=== PATIENT | female | born 2000 | race American Indian/Alaskan Native ===

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

== ENCOUNTER 2020-02-06 10:56 | Emergency (ER) | payer BC, OTHER ==
[2020-02-06] MEDS ORDERED: HYDROmorphone 1 MG/ML Syringe IVPUSH ONE (11:12)
[2020-02-06] MEDS ORDERED: Sodium Chloride 0.9% 1,000 ML IV ONE (11:12)
[2020-02-06] MEDS ORDERED: Ondansetron 4 MG/2 ML SDV IVPUSH ONE (11:13)
--- NOTE | 2020-02-06 11:14 | EDM.PDOC ---
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 Pt rates the pain 9/10. The pain is radiating to to left lower abdomen and groin. Denies diarrhea, dysuria, or ch thee in voiding pattern. Pt states the Sx's are similar to prior kidney infection. Onset: Today, Sudden Duration: Constant Location: Reports: Abdomen, Other (Left flank) Quality: Reports: Ache Severity: Severe Improves with: Reports: None Worsens with: Reports: None Associated Symptoms: Reports: No Other Symptoms - Related Data Allergies Allergy/AdvReac Type Severity Reaction Status Date / Time No Known Allergies Allergy Verified 03/27/19 22:15 Home Meds: Home Meds Eszopiclone [Lunesta] 3 mg PO BEDTIME PRN 03/28/19 [History] Levothyroxine Sodium [Synthroid] 100 mcg PO DAILY 03/28/19 [History] Ciprofloxacin [Cipro XR] 500 mg PO BID #14 tab.er 03/31/19 [Rx] Levothyroxine [Synthroid] 100 mcg PO DAILY tablet 03/31/19 [Rx] Past Medical History HEENT History: Reports: None Cardiovascular History: Reports: None Respiratory History: Reports: None Gastrointestinal History: Reports: None Genitourinary History: Reports: Pyelonephritis Other Genitourinary History: currently 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 Neurological History: Reports: None Psychiatric History: Reports: Anxiety, Depression, PTSD Endocrine/Metabolic History: Reports: Hypothyroidism, Obesity/BMI 30+ Hematologic History: Reports: None Immunologic History: Reports: None Oncologic (Cancer) History: Reports: None Other Dermatologic History: gets bad heat rash - Infectious Disease History Infectious Disease History: Reports: None - Past Surgical History Head Surgeries/Procedures: Reports: None Female Surgical History: Reports: None Musculoskeletal Surgical History: Reports: Other (See Below) Other Musculoskeletal Surgeries/Procedures:: ACL right (05-04-2018), right arm break, 2nd grade Social & Family History - Family History Family Medical History: Noncontributory - Caffeine Use Caffeine Use: Reports: Soda - Living Situation & Occupation Living situation: Reports: with Family ED ROS GENERAL - Review of Systems Review Of Systems: Comprehensive ROS is negative, except as noted in HPI. ED EXAM, GI/ABD - Physical Exam Exam: See Below Exam Limited By: No Limitations General Appearance: Alert, WD/WN, No Apparent Distress, Obese Eyes: Bilateral: Normal Appearance Throat/Mouth: Normal Voice, No Airway Compromise Head: Atraumatic, Normocephalic Neck: Normal Inspection Respiratory/Chest: No Respiratory Distress, Lungs Clear, Normal Breath Sounds, No Accessory Muscle Use, Chest Non-Tender Cardiovascular: Normal Peripheral Pulses, Regular Rate, Rhythm, No Edema, No Gallop, No JVD, No Murmur, No Rub GI/Abdominal Exam: Normal Bowel Sounds, Soft, Non-Tender (no pain to palpation over area of pain at LLQ), No Organomegaly, No Distention, No Abnormal Bruit. No: Guarding, Rigid, Rebound (Female) Exam: Deferred Rectal (Female) Exam: Deferred Back Exam: Full Range of Motion, CVA Tenderness (L). No: CVA Tenderness (R), Vertebral Tenderness Extremities: Normal Inspection Neurological: Alert, Oriented, Normal Cognition, Normal Gait, No Motor/Sensory Deficits Psychiatric: Normal Affect, Normal Mood Skin Exam: Warm, Intact, Normal Color, No Rash, Diaphoretic Course - Vital Signs Last Recorded V/S: Last Vital Signs Temp 98.1 F 02/06/20 11:06 Pulse 100 02/06/20 11:06 Resp 16 02/06/20 11:06 BP 128/87 02/06/20 11:06 Pulse Ox 99 02/06/20 11:06 - Orders/Labs/Meds Orders: Active Orders 24 hr Category Date Time Status Abdomen Pelvis wo Cont [CT] Urgent Exams 02/06/20 11:34 Taken Labs: Laboratory Tests 02/06/20 02/06/20 02/06/20 Range/Units 11:00 11:00 11:18 WBC 9.8 (5.0-10.0) 10^3/uL RBC 5.61 H (4.2-5.4) 10^6/uL Hgb 15.4 D (12.0-16.0) g/dL Hct 46.2 (37.0-47.0) % MCV 82.4 (80-100) fL MCH 27.5 (27.0-34.0) pg MCHC 33.3 (33.0-35.0) g/dL Plt Count 520 H D (150-450) 10^3/uL Neut % (Auto) 56.5 (42.2-75.2) % Lymph % (Auto) 34.8 (20.5-50.1) % [place] % (Auto) 6.6 (2-8) % Eos % (Auto) 1.7 (1.0-3.0) % Baso % (Auto) 0.4 (0.0-1.0) % Sodium (136-145) mmol/L Potassium (3.5-5.1) mmol/L Chloride (98-107) mmol/L Carbon Dioxide (21-32) mmol/L Anion Gap (7-13) mEq/L BUN (7-18) mg/dL Creatinine (0.55-1.02) mg/dL Est Cr Clr Drug Dosing mL/min Estimated GFR (MDRD) BUN/Creatinine Ratio (No establ ref range) Glucose (74-99) mg/dL Lactic Acid (0.4-2.0) mmol/L Calcium (8.5-10.1) mg/dL Total Bilirubin (0.2-1.0) mg/dL AST (15-37) U/L ALT (14-59) U/L Alkaline Phosphatase (46-116) U/L Total Protein (6.4-8.2) g/dL Albumin (3.4-5.0) g/dL Globulin Albumin/Globulin Ratio Amylase (25-115) U/L Lipase (73-393) U/L Urine Color Yellow (YELLOW) Urine Appearance Slightly cloudy (CLEAR) Urine pH 5.5 (5.0-9.0) Ur Specific [place] >= 1.030 (1.005-1.030) Urine Protein Trace H (NEGATIVE) Urine Glucose (UA) Negative (NEGATIVE) Urine Ketones Negative (NEGATIVE) Urine Occult Blood Small H (NEGATIVE) Urine Nitrite Negative (NEGATIVE) Urine Bilirubin Negative (NEGATIVE) Urine Urobilinogen 0.2 (0.2-1.0) mg/dL Ur Leukocyte Esterase Negative (NEGATIVE) Urine RBC 5-10 H /HPF Urine WBC 5-10 H (0-5/HPF) /HPF Ur Epithelial Cells Moderate H (NOT SEEN) /HPF Urine Bacteria Moderate H (0-FEW/HPF) /HPF Urine HCG, Qual Negative 02/06/20 02/06/20 Range/Units 11:18 11:18 WBC (5.0-10.0) 10^3/uL RBC (4.2-5.4) 10^6/uL Hgb (12.0-16.0) g/dL Hct (37.0-47.0) % MCV (80-100) fL MCH (27.0-34.0) pg MCHC (33.0-35.0) g/dL Plt Count (150-450) 10^3/uL Neut % (Auto) (42.2-75.2) % Lymph % (Auto) (20.5-50.1) % [place] % (Auto) (2-8) % Eos % (Auto) (1.0-3.0) % Baso % (Auto) (0.0-1.0) % Sodium 137 (136-145) mmol/L Potassium 3.6 (3.5-5.1) mmol/L Chloride 100 (98-107) mmol/L Carbon Dioxide 24 (21-32) mmol/L Anion Gap 16.6 H (7-13) mEq/L BUN 12 (7-18) mg/dL Creatinine 1.03 H (0.55-1.02) mg/dL Est Cr Clr Drug Dosing 82.24 mL/min Estimated GFR (MDRD) > 60 BUN/Creatinine Ratio 11.7 (No establ ref range) Glucose 116 H (74-99) mg/dL Lactic Acid 2.1 H* (0.4-2.0) mmol/L Calcium 9.1 (8.5-10.1) mg/dL Total Bilirubin 0.4 (0.2-1.0) mg/dL AST 22 (15-37) U/L ALT 39 (14-59) U/L Alkaline Phosphatase 128 H (46-116) U/L Total Protein 8.9 H (6.4-8.2) g/dL Albumin 4.6 (3.4-5.0) g/dL Globulin 4.3 Albumin/Globulin Ratio 1.1 Amylase 33 (25-115) U/L Lipase 106 (73-393) U/L Urine Color (YELLOW) Urine Appearance (CLEAR) Urine pH (5.0-9.0) Ur Specific [place] (1.005-1.030) Urine Protein (NEGATIVE) Urine Glucose (UA) (NEGATIVE) Urine Ketones (NEGATIVE) Urine Occult Blood (NEGATIVE) Urine Nitrite (NEGATIVE) Urine Bilirubin (NEGATIVE) Urine Urobilinogen (0.2-1.0) mg/dL Ur Leukocyte Esterase (NEGATIVE) Urine RBC /HPF Urine WBC (0-5/HPF) /HPF Ur Epithelial Cells (NOT SEEN) /HPF Urine Bacteria (0-FEW/HPF) /HPF Urine HCG, Qual Meds: Medications Discontinued Medications Generic Name Dose Route Start Last Admin Trade Name Freq PRN Reason Stop Dose Admin Hydromorphone HCl 1 mg 02/06/20 11:12 02/06/20 11:18 Dilaudid IVPUSH 02/06/20 11:13 1 mg ONETIME ONE Administration Sodium Chloride 1,000 mls @ 999 mls/hr 02/06/20 11:12 02/06/20 11:18 Normal Saline IV 02/06/20 12:12 999 mls/hr .BOLUS ONE Administration Ketorolac Tromethamine 30 mg 02/06/20 12:00 02/06/20 12:18 Toradol IVPUSH 02/06/20 12:01 30 mg ONETIME ONE Administration Ondansetron HCl 4 mg 02/06/20 11:13 02/06/20 11:18 Zofran IVPUSH 02/06/20 11:14 4 mg ONETIME ONE Administration Tamsulosin HCl 0.4 mg 02/06/20 12:00 02/06/20 12:18 Flomax PO 02/06/20 12:01 0.4 mg ONETIME ONE Administration - Radiology Interpretation Free Text/Narrative:: CT Abdomen/Pelvis: Left kidney stone, see Rad. report. Departure - Departure Time of Disposition: 12:36 Disposition: Home, Self-Care 01 Condition: Good Clinical Impression: Kidney stone on left side - Discharge Information *PRESCRIPTION DRUG MONITORING PROGRAM REVIEWED*: No *COPY OF PRESCRIPTION DRUG MONITORING REPORT IN PATIENT TOR: No Instructions: Kidney Stones, [id number], Renal Colic, [id number] Forms: ED Department Discharge Additional Instructions: Rx: Hydrocodone APAP 5mg/325mg Rx: Zofran 4mg Drink plenty of water. Follow up in clinic if not improved in 3 to 5 days. Return to ER if you develop a fever before you pass the kidney stone. Sepsis Event Note (ED) - Evaluation Sepsis Screening Result: No Definite Risk - Focused Exam Vital Signs: Vital Signs Temp Pulse Resp BP Pulse Ox 02/06/20 11:06 98.1 F 100 16 128/87 99 - My Orders Last 24 Hours: My Active Orders 02/06/20 11:34 Abdomen Pelvis wo Cont [CT] Urgent - Assessment/Plan Last 24 Hours: My Active Orders 02/06/20 11:34 Abdomen Pelvis wo Cont [CT] Urgent
[2020-02-06 11:49] LABS: ANION GAP 16.6 mEq/L (7-13); CHLORIDE,CL 100 mmol/L (98-107); SODIUM,NA 137 mmol/L (136-145)
[2020-02-06] MEDS ORDERED: Tamsulosin 0.4 MG Cap.ER PO ONE (12:00)
[2020-02-06] MEDS ORDERED: Ketorolac 30 MG/ML SDV IVPUSH ONE (12:00)
--- NOTE | 2020-02-06 13:27 | CT ---
PROCEDURE INFORMATION: Exam: CT Abdomen And Pelvis Without Contrast Exam date and time: 02/06/2020 11:48 AM Age: 19 years old Clinical indication: Other: Left flank pain radiating to llq abd. , Hematuria TECHNIQUE: Imaging protocol: Computed tomography of the abdomen and pelvis without contrast. Radiation optimization: All CT scans at this facility use at least one of these dose optimization techniques: automated exposure control; mA and/or kV adjustment per patient size (includes targeted exams where dose is matched to clinical indication); or iterative reconstruction. COMPARISON: CT Abdomen Pelvis w Cont 03/27/2019 3:47 PM FINDINGS: Liver: Normal. Gallbladder and bile ducts: Normal. Pancreas: Normal. Spleen: Normal. Adrenals: Normal. Kidneys and ureters: 1 mm calculus in the distal left ureter approaching the left ureterovesicular junction. The left ureter is mildly enlarged with mild wall thickening and distal left periureteral fatty stranding. Left renal pelvis is very slightly enlarged compared to right. Stomach and bowel: Normal. Appendix: Normal. Intraperitoneal space: No ascites or pneumoperitoneum. Vasculature: Normal. Lymph nodes: No inguinal, mesenteric or retroperitoneal adenopathy. Bladder: Normal. Reproductive: Normal uterus and ovaries. Bones/joints: Normal. Soft tissues: Normal. IMPRESSION: Minimally obstructing 1 mm distal left ureteral calculus.
== END 2020-02-06 13:00 | disposition home or self-care (01) ==
LOC: DL.ED 10:56
DX: N20.0 Calculus of kidney (principal); E03.9 Hypothyroidism, unspecified; E66.9 Obesity, unspecified; Z68.36 Body mass index [BMI] 36.0-36.9, adult; Z79.899 Other long term (current) drug therapy
CPT/HCPCS: 36415; 74176; 80053; 81001; 81025; 82150; 83605; 83690; 85025; 96361; 96374; 96375; 99284; A9270; J1170; J1885; J2405; J7030; 99283

== ENCOUNTER 2021-03-02 13:09 | Emergency (ER) | payer BC, OTHER ==
[2021-03-02] MEDS ORDERED: predniSONE 20 MG Tab PO ONE (15:45)
[2021-03-02] MEDS ORDERED: Amoxicillin/Clavulanate K 875-125 MG Tab PO ONE (15:47)
[2021-03-02] MEDS ORDERED: diphenhydrAMINE 25 MG Tab PO ONE (15:47)
--- NOTE | 2021-03-02 16:03 | EDM.PDOC ---
Scribed by Irma Sanon 03/02/21 1602 for Butch Mcgill MD ED HPI GENERAL MEDICAL PROBLEM - General Chief Complaint: Respiratory Problem Stated Complaint: [id number] COUGHING CHEST PAIN FEVER Time Seen by Provider: 03/02/21 14:00 Source of Information: Reports: Patient, RN, RN Notes Reviewed History Limitations: Reports: No Limitations - History of Present Illness INITIAL COMMENTS - FREE TEXT/NARRATIVE: Patient presents to ED by POV with chest pain with breathing, rates it 5/10. She took Equate cold flu/ allergy med/ and took Ibuprofen 800 mg at 0600. She has a harsh cough. Onset: Gradual Duration: Getting Worse Location: Reports: Generalized Quality: Reports: Ache Severity: Moderate Improves with: Reports: None Worsens with: Reports: None Associated Symptoms: Reports: No Other Symptoms Chest Pain Score (Numeric/FACES): 5 - Related Data Allergies Allergy/AdvReac Type Severity Reaction Status Date / Time No Known Allergies Allergy Verified 03/02/21 14:00 Home Meds: Home Meds Eszopiclone [Lunesta] 3 mg PO BEDTIME PRN 03/28/19 [History] Levothyroxine Sodium [Synthroid] 100 mcg PO DAILY 03/28/19 [History] Ciprofloxacin [Cipro XR] 500 mg PO BID #14 tab.er 03/31/19 [Rx] Levothyroxine [Synthroid] 100 mcg PO DAILY tablet 03/31/19 [Rx] Past Medical History HEENT History: Reports: None Cardiovascular History: Reports: None Respiratory History: Reports: None Gastrointestinal History: Reports: None Genitourinary History: Reports: Pyelonephritis Other Genitourinary History: currently 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 Neurological History: Reports: None Psychiatric History: Reports: Anxiety, Depression, PTSD Endocrine/Metabolic History: Reports: Hypothyroidism, Obesity/BMI 30+ Hematologic History: Reports: None Immunologic History: Reports: None Oncologic (Cancer) History: Reports: None Other Dermatologic History: gets bad heat rash - Infectious Disease History Infectious Disease History: Reports: None - Past Surgical History Head Surgeries/Procedures: Reports: None Female Surgical History: Reports: None Musculoskeletal Surgical History: Reports: Other (See Below) Other Musculoskeletal Surgeries/Procedures:: ACL right (05-04-2018), right arm break, 2nd grade Social & Family History - Family History Family Medical History: No Pertinent Family History - Caffeine Use Caffeine Use: Reports: Coffee, Soda - Recreational Drug Use Recreational Drug Use: No - Living Situation & Occupation Living situation: Reports: with Family ED ROS GENERAL - Review of Systems Review Of Systems: Comprehensive ROS is negative, except as noted in HPI. ED EXAM, GENERAL - Physical Exam Exam: See Below Exam Limited By: No Limitations General Appearance: Alert, WD/WN, No Apparent Distress, Obese Eye Exam: Bilateral Eye: Normal Inspection Ears: Normal External Exam, Normal Canal, Other (Retracted B/L TMs without erythema or effusions. Slightly muffled hearing.) Nose: No Blood, Nasal Drainage (yellow-purulent. Inflammed injected inferior turbinates) Throat/Mouth: Normal Lips, Normal Voice, No Airway Compromise, Other (Streaks of erythema with postnasal drip) Head: Atraumatic, Normocephalic Neck: Normal Inspection, Full Range of Motion, Other ([place] cervical lymphadenopathy) Respiratory/Chest: No Respiratory Distress, Lungs Clear, Normal Breath Sounds, No Accessory Muscle Use, Chest Non-Tender, Other (cough) Cardiovascular: Regular Rate, Rhythm, Tachycardia Back Exam: Normal Inspection Extremities: Normal Inspection Neurological: Alert, Oriented, No Motor/Sensory Deficits Psychiatric: Normal Affect, Normal Mood Skin Exam: Warm, Dry, Intact, Normal Color, No Rash Course - Vital Signs Last Recorded V/S: Last Vital Signs Temp 99.3 F 03/02/21 15:23 Pulse 114 H 03/02/21 15:23 Resp 20 03/02/21 15:23 BP 146/106 H 03/02/21 15:23 Pulse Ox 99 03/02/21 15:23 - Orders/Labs/Meds Orders: Active Orders 24 hr Category Date Time Status CULTURE STREP A CONFIRMATION [RM] Stat Lab 03/02/21 13:20 Results STREP SCRN A RAPID W CULT CONF [RM] Stat Lab 03/02/21 13:20 Results Isolation [COMM] Routine Oth 03/02/21 13:19 Active Labs: Laboratory Tests 03/02/21 Range/Units 13:20 SARS-CoV-2 RNA (INÉS) Negative (NEGATIVE) Rapid strep: Negative. Influenza A and B: Negative. Meds: Medications Discontinued Medications Generic Name Dose Route Start Last Admin Trade Name Freq PRN Reason Stop Dose Admin Amoxicillin/Clavulanate Potassium 1 tab 03/02/21 15:47 Amoxicillin/Clavulanate K 875-125 Mg Tab PO 03/02/21 15:48 ONETIME ONE Diphenhydramine HCl 25 mg 03/02/21 15:47 Diphenhydramine 25 Mg Tab PO 03/02/21 15:48 ONETIME ONE Prednisone 60 mg 03/02/21 15:45 Prednisone 20 Mg Tab PO 03/02/21 15:46 ONETIME ONE Departure - Departure Time of Disposition: 15:48 Disposition: Home, Self-Care 01 Condition: Good Clinical Impression: Viral URI with cough Sinusitis Qualifiers: Sinusitis location: pansinusitis Chronicity: unspecified Qualified Code(s): J32.4 - Chronic pansinusitis Eustachian tube dysfunction Qualifiers: Laterality: bilateral Qualified Code(s): H69.83 - Other specified disorders of Eustachian tube, bilateral - Discharge Information *PRESCRIPTION DRUG MONITORING PROGRAM REVIEWED*: Not Applicable *COPY OF PRESCRIPTION DRUG MONITORING REPORT IN PATIENT TOR: Not Applicable Instructions: Viral Respiratory Infection, [id number], Sinusitis, Adult, [id number] Forms: ED Department Discharge Additional Instructions: RX: Augmentin 875mg for 10 days. RX: Decadron 4mg for 5 days. RX: Loratadine. Frequent salt water gargles until sore throat improves. Use Tylenol or Ibuprofen for fever or pain. Follow up in clinic if not improving in 3 to 5 days. Sepsis Event Note (ED) - Focused Exam Vital Signs: Vital Signs Temp Pulse Resp BP Pulse Ox 03/02/21 15:23 99.3 F 114 H 20 146/106 H 99 03/02/21 13:55 97 F 129 H 20 126/75 100 - My Orders Last 24 Hours: My Active Orders 03/02/21 13:19 Isolation [COMM] Routine 03/02/21 13:20 CULTURE STREP A CONFIRMATION [RM] Stat STREP SCRN A RAPID W CULT CONF [RM] Stat - Assessment/Plan Last 24 Hours: My Active Orders 03/02/21 13:19 Isolation [COMM] Routine 03/02/21 13:20 CULTURE STREP A CONFIRMATION [RM] Stat STREP SCRN A RAPID W CULT CONF [RM] Stat I have read and agree with the documentation that has been completed regarding this visit. By signing this record, I attest that the documentation was completed in my physical presence and is an accurate record of the encounter.
== END 2021-03-02 16:08 | disposition home or self-care (01) ==
LOC: DL.ED 13:09
DX: J06.9 Acute upper respiratory infection, unspecified (principal); J32.4 Chronic pansinusitis; H69.83 Other specified disorders of Eustachian tube, bilateral; E03.9 Hypothyroidism, unspecified; E66.9 Obesity, unspecified; Z68.34 Body mass index [BMI] 34.0-34.9, adult; Z79.899 Other long term (current) drug therapy; Z20.822 Contact with and (suspected) exposure to COVID-19
CPT/HCPCS: 87081; 87430; 87635; 87804; 99284; A9270; J7512; U0002

== ENCOUNTER 2021-10-15 19:06 | Emergency (ER) | payer BC | END 2021-10-15 19:45 | disposition home or self-care (01) | LOC: DL.ED 19:06 | DX: N61.0 Mastitis without abscess (principal); E03.9 Hypothyroidism, unspecified; E66.9 Obesity, unspecified; Z68.34 Body mass index [BMI] 34.0-34.9, adult; Z79.899 Other long term (current) drug therapy | CPT/HCPCS: 99283 ==